=== PATIENT | female | born 2005 ===

== ENCOUNTER → 2025-04-11 09:00 | Outpatient (BNV) | payer OTHER, SELFPAY | PROVIDERS: Visit Provider Internal Medicine | DX: I49.49 Other premature depolarization (principal) | CPT/HCPCS: 93244 ==

== ENCOUNTER → 2025-04-11 10:00 | Outpatient (REF) | payer OTHER, SELFPAY ==
--- NOTE | 2025-04-11 09:00 | HM_ITS ---
* Total monitoring time 3 days. * Underlying rhythm is sinus with an average rate of 97/Min. About 40% of the time, rate > 100/Min. * Very rare supraventricular ectopy. * No significant pauses or high-grade AV blocks. * Patient markers noted with sinus rhythm. * No diary events. MTDD
== END ==
LOC: HO.CARD 10:00
PROVIDERS: Visit Provider Emergency Medicine
DX: R00.2 Palpitations (principal)
CPT/HCPCS: 93242